=== PATIENT | female | born 1960 ===

== ENCOUNTER 2017-08-13 12:30 | Inpatient (IN) | payer OTHER ==
[~2017-08-13] VITALS: Ht 149.9 cm; Wt 52.6 kg
[2017-08-13] MEDS ORDERED: ALENDRONATE SOD70 MG PO (14:38)
[2017-08-13] MEDS ORDERED: CLONAZEPAM0.5 MG PO (14:38)
[2017-08-13] MEDS ORDERED: CALTRATE 600+D1 EACH PO (14:39)
[2017-08-13] MEDS ORDERED: ATORVASTATIN CA10 MG PO (14:39)
[2017-08-22] MEDS ORDERED: INTESTINEX680 M1 PO (12:25)
[2017-08-22] MEDS ORDERED: PERCOCET 5-3251 EACH PO (12:25)
[2017-08-22] MEDS ORDERED: OMEPRAZOLE20 MG PO (12:25)
== END 2017-08-22 13:49 | disposition home or self-care (01) | DRG 331 ==
LOC: O/R 08-19 06:58 → SURG 08-19 12:00 → SURH 08-19 12:39
PROVIDERS: Surgery
PROC: 07TC4ZZ Resection of Pelvis Lymphatic, Percutaneous Endoscopic Approach (ICD-10-PCS; 2017-08-19)
PROC: 0DBU4ZZ Excision of Omentum, Percutaneous Endoscopic Approach (ICD-10-PCS; 2017-08-19)
PROC: 0DTF4ZZ Resection of Right Large Intestine, Percutaneous Endoscopic Approach (ICD-10-PCS; principal; 2017-08-19 12:00)
DX: D12.0 Benign neoplasm of cecum (principal); R59.0 Localized enlarged lymph nodes; F41.8 Other specified anxiety disorders; E78.4 Other hyperlipidemia; D64.89 Other specified anemias

== ENCOUNTER 2017-11-30 11:07 | Emergency (ER) | payer OTHER ==
[~2017-11-30] VITALS: Ht 149.9 cm; Wt 48.1 kg
[~2017-11-30 11:07] MED LIST: ALENDRONATE SOD70 MG PO; ATORVASTATIN CA10 MG PO; CALTRATE 600+D1 EACH PO; CLONAZEPAM0.5 MG PO; INTESTINEX680 M1 PO; OMEPRAZOLE20 MG PO; PERCOCET 5-3251 EACH PO
== END 2017-11-30 12:38 | disposition home or self-care (01) ==
LOC: ER 11:07
DX: K64.4 Residual hemorrhoidal skin tags (principal)